=== PATIENT | female | born 1995 | race Caucasian/White ===

== ENCOUNTER 2019-05-13 17:49 | Emergency (ER) | payer SELFPAY ==
[~2019-05-13] VITALS: Ht 157.5 cm; Wt 66.7 kg
[2019-05-13 17:58] VITALS: Ht 157.5 cm; Wt 66.7 kg
[2019-05-13 21:23] VITALS: BP 107/67
== END 2019-05-13 21:00 | disposition home or self-care (01) ==
LOC: ED 17:49
DX: S16.1XXA Strain of muscle, fascia and tendon at neck level, initial encounter (principal); S09.11XA Strain of muscle and tendon of head, initial encounter; J45.909 Unspecified asthma, uncomplicated; R00.2 Palpitations; V49.88XA Car occupant (driver) (passenger) injured in other specified transport accidents, initial encounter; Y93.89 Activity, other specified; Y92.89 Other specified places as the place of occurrence of the external cause; Y99.8 Other external cause status